=== PATIENT | female | born 1960 | race Caucasian/White ===

== ENCOUNTER → 2016-06-25 | Outpatient (CLI) | payer OTHER ==
[2016-06-25 10:39] LABS: BASOPHIL % 0.6 % (0-2); PLATELET COUNT 240 x10^3mcL (130-400); RED CELL DISTRIBUTION WIDTH 13.9 % (11.5-14.5)
[2016-06-25 10:55] LABS: ALKALINE PHOSPHATASE 56 U/L (46-116); ALT/SGPT 24 U/L (14-59); AST/SGOT 17 U/L (15-37); BILIRUBIN TOTAL 0.4 mg/dL (0.20-1.00); CALCIUM 8.6 mg/dL (8.5-10.1); CHLORIDE SERUM 107 mmol/L (98-107); CREATININE SERUM 0.7 mg/dL (0.6-1.0); GFR1 > 60 mL/min; GLUCOSE SERUM 113 mg/dL (74-106); SODIUM SERUM 147 mmol/L (136-145); TOTAL PROTEIN, SERUM 7.5 g/dL (6.4-8.2); URIC ACID 5.2 mg/dL (2.6-6.0)
[2016-06-25 11:01] LABS: C REACTIVE PROTEIN < 0.2 mg/dL (<=0.9)
[2016-06-25 11:12] LABS: UA SPECIFIC GRAVITY 1.025 (1.005-1.035); microscopic required? YES; urine erythrocyte NEGATIVE (NEGATIVE)
[2016-06-25 11:53] LABS: ERYTHROCYTE SED RATE 16 mm/hr (0-30)
== END | disposition home or self-care (01) ==
LOC: RD 09:25
DX: M79.7 Fibromyalgia (principal)
CPT/HCPCS: 85613

== ENCOUNTER → 2016-06-28 | Outpatient (CLI) | payer OTHER | END | disposition home or self-care (01) | LOC: RD 12:38 | DX: M79.7 Fibromyalgia (principal) ==

== ENCOUNTER → 2016-07-29 | Outpatient (CLI) | payer OTHER ==
[2016-07-29 11:51] LABS: PLATELET COUNT 234 x10^3mcL (130-400); RED CELL DISTRIBUTION WIDTH 13.5 % (11.5-14.5)
[2016-07-29 12:11] LABS: ALBUMIN 3.8 g/dL (3.4-5.0); ALKALINE PHOSPHATASE 55 U/L (46-116); ALT/SGPT 35 U/L (14-59); AST/SGOT 19 U/L (15-37); BILIRUBIN TOTAL 0.6 mg/dL (0.20-1.00); CALCIUM 8.2 mg/dL (8.5-10.1); CARBON DIOXIDE 32.1 mmol/L (21-32); CHLORIDE SERUM 103 mmol/L (98-107); CHOLESTEROL 152 mg/dL (<200); CREATININE SERUM 0.7 mg/dL (0.6-1.0); GFR1 > 60 mL/min; GLUCOSE SERUM 124 mg/dL (74-106); POTASSIUM SERUM 4.1 mmol/L (3.5-5.1); SODIUM SERUM 141 mmol/L (136-145); TOTAL PROTEIN, SERUM 7.3 g/dL (6.4-8.2); TRIGLYCERIDES 62 mg/dL (<150)
[2016-07-29 12:23] LABS: CHOLESTEROL/HDL RATIO 2.5; HDL CHOLESTEROL 62 mg/dL (40-60)
[2016-07-29 12:27] LABS: MONOCYTE 6 % (0-7); SEGMENTED NEUTROPHILS 65 % (37-75); rbc morphology (normal/abnorm) NORMAL (NORMAL)
== END | disposition home or self-care (01) ==
LOC: LB 10:53
DX: E11.9 Type 2 diabetes mellitus without complications (principal)

== ENCOUNTER → 2016-09-30 | Outpatient (CLI) | payer OTHER ==
[2016-09-30 10:46] LABS: BASOPHIL % 0.7 % (0-2); PLATELET COUNT 247 x10^3mcL (130-400); RED CELL DISTRIBUTION WIDTH 12.8 % (11.5-14.5)
[2016-09-30 11:25] LABS: ALBUMIN 3.8 g/dL (3.4-5.0); ALKALINE PHOSPHATASE 53 U/L (46-116); ALT/SGPT 42 U/L (14-59); AST/SGOT 23 U/L (15-37); BILIRUBIN TOTAL 0.52 mg/dL (0.20-1.00); CALCIUM 8.9 mg/dL (8.5-10.1); CARBON DIOXIDE 31.3 mmol/L (21-32); CHLORIDE SERUM 104 mmol/L (98-107); CREATININE SERUM 0.9 mg/dL (0.6-1.0); GFR1 > 60 mL/min; GLUCOSE SERUM 127 mg/dL (74-106); MAGNESIUM 2.1 mg/dL (1.8-2.4); POTASSIUM SERUM 4.1 mmol/L (3.5-5.1); SODIUM SERUM 142 mmol/L (136-145); TOTAL PROTEIN, SERUM 7.5 g/dL (6.4-8.2); URIC ACID 5.6 mg/dL (2.6-6.0)
[2016-09-30 11:26] LABS: C REACTIVE PROTEIN < 0.2 mg/dL (<=0.9)
[2016-09-30 18:54] LABS: ERYTHROCYTE SED RATE 7 mm/hr (0-30)
== END | disposition home or self-care (01) ==
LOC: LB 10:09
DX: M79.7 Fibromyalgia (principal)

== ENCOUNTER → 2016-11-01 | Outpatient (CLI) | payer OTHER ==
[2016-11-01 11:16] LABS: BASOPHIL % 0.5 % (0-2); PLATELET COUNT 221 x10^3mcL (130-400); RED CELL DISTRIBUTION WIDTH 13.3 % (11.5-14.5)
[2016-11-01 11:49] LABS: ALBUMIN 3.7 g/dL (3.4-5.0); ALKALINE PHOSPHATASE 46 U/L (46-116); ALT/SGPT 31 U/L (14-59); AST/SGOT 19 U/L (15-37); CALCIUM 8.7 mg/dL (8.5-10.1); CARBON DIOXIDE 33.4 mmol/L (21-32); CHLORIDE SERUM 104 mmol/L (98-107); CREATININE SERUM 0.7 mg/dL (0.6-1.0); GFR1 > 60 mL/min; GLUCOSE SERUM 130 mg/dL (74-106); POTASSIUM SERUM 4.3 mmol/L (3.5-5.1); SODIUM SERUM 143 mmol/L (136-145); TOTAL PROTEIN, SERUM 7.3 g/dL (6.4-8.2)
== END | disposition home or self-care (01) ==
LOC: LB 10:39
DX: E11.9 Type 2 diabetes mellitus without complications (principal)

== ENCOUNTER → 2017-04-21 | Outpatient (CLI) | payer OTHER | END | disposition home or self-care (01) | LOC: LB 12:39 | DX: N39.0 Urinary tract infection, site not specified (principal) ==

== ENCOUNTER → 2018-01-05 | Outpatient (CLI) | payer OTHER ==
[2018-01-05 10:43] LABS: BASOPHIL % 0.6 % (0-2); PLATELET COUNT 226 x10^3mcL (130-400); RED CELL DISTRIBUTION WIDTH 13.1 % (11.5-14.5)
[2018-01-05 11:16] LABS: ALBUMIN 3.8 g/dL (3.4-5.0); ALKALINE PHOSPHATASE 61 U/L (46-116); ALT/SGPT 34 U/L (14-59); AST/SGOT 17 U/L (15-37); BILIRUBIN TOTAL 0.67 mg/dL (0.20-1.00); CARBON DIOXIDE 30.8 mmol/L (21-32); CHLORIDE SERUM 105 mmol/L (98-107); CREATININE SERUM 0.8 mg/dL (0.6-1.0); GFR1 > 60 mL/min; GLUCOSE SERUM 142 mg/dL (74-106); POTASSIUM SERUM 3.9 mmol/L (3.5-5.1); SODIUM SERUM 143 mmol/L (136-145); TOTAL PROTEIN, SERUM 7.4 g/dL (6.4-8.2)
[2018-01-05 11:19] LABS: C REACTIVE PROTEIN < 0.2 mg/dL (<=0.9)
[2018-01-05 11:26] LABS: CALCIUM 8.4 mg/dL (8.5-10.1)
[2018-01-05 11:50] LABS: ERYTHROCYTE SED RATE 14 mm/hr (0-30)
[2018-01-06 06:14] LABS: VITAMIN D 25-HYDROXY 27.8 ng/mL (30.0-100.0)
== END | disposition home or self-care (01) ==
LOC: LB 10:06
DX: M79.7 Fibromyalgia (principal)

== ENCOUNTER → 2019-01-08 | Outpatient (CLI) | payer OTHER ==
[2019-01-08 11:54] LABS: microscopic required? YES; urine erythrocyte NEGATIVE (NEGATIVE)
[2019-01-09 08:06] LABS: IMMUNOGLOBULIN A 278 mg/dL (87-352); IMMUNOGLOBULIN G (QUANT) 1179 mg/dL (700-1600); IMMUNOGLOBULIN M 69 mg/dL (26-217)
== END | disposition home or self-care (01) ==
LOC: LB 11:10
DX: Z00.00 Encounter for general adult medical examination without abnormal findings (principal)

== ENCOUNTER 2019-01-19 10:02 | Emergency (ER) | payer OTHER ==
[~2019-01-19] VITALS: Ht 157.5 cm; Wt 66.7 kg
[2019-01-19 10:08] VITALS: BP 141/66; Ht 157.5 cm; Wt 66.7 kg
== END 2019-01-19 12:39 | disposition home or self-care (01) ==
LOC: ED 10:02
DX: H81.10 Benign paroxysmal vertigo, unspecified ear (principal)

== ENCOUNTER → 2019-01-22 | Outpatient (CLI) | payer OTHER ==
[2019-01-22 11:44] LABS: ALBUMIN 3.9 g/dL (3.4-5.0); ALKALINE PHOSPHATASE 64 U/L (46-116); ALT/SGPT 29 U/L (14-59); AST/SGOT 14 U/L (15-37); CALCIUM 8.9 mg/dL (8.5-10.1); CARBON DIOXIDE 30.6 mmol/L (21-32); CHLORIDE SERUM 103 mmol/L (98-107); CREATININE SERUM 0.8 mg/dL (0.6-1.0); GFR1 > 60 mL/min; GLUCOSE SERUM 146 mg/dL (74-106); HDL CHOLESTEROL 54 mg/dL (40-60); POTASSIUM SERUM 4.3 mmol/L (3.5-5.1); SODIUM SERUM 141 mmol/L (136-145); TOTAL PROTEIN, SERUM 7.8 g/dL (6.4-8.2); TRIGLYCERIDES 86 mg/dL (<150)
[2019-01-22 11:50] LABS: CHOLESTEROL 133 mg/dL (<200); CHOLESTEROL/HDL RATIO 2.5
[2019-01-23 09:08] LABS: microalbumin:creatinine ratio 10.5 (0.0-30.0)
== END | disposition home or self-care (01) ==
LOC: LB 10:31
DX: R73.9 Hyperglycemia, unspecified (principal)

== ENCOUNTER → 2019-07-10 | Outpatient (CLI) | payer OTHER ==
[2019-07-10 11:35] LABS: BASOPHIL % 0.7 % (0-2); PLATELET COUNT 257 x10^3mcL (130-400)
[2019-07-10 12:07] LABS: ALBUMIN 3.8 g/dL (3.4-5.0); ALKALINE PHOSPHATASE 49 U/L (46-116); ALT/SGPT 22 U/L (14-59); AST/SGOT 13 U/L (15-37); BILIRUBIN TOTAL 0.6 mg/dL (0.20-1.00); CALCIUM 8.8 mg/dL (8.5-10.1); CARBON DIOXIDE 31.4 mmol/L (21-32); CHLORIDE SERUM 105 mmol/L (98-107); CREATININE SERUM 0.7 mg/dL (0.6-1.0); GFR1 > 60 mL/min; GLUCOSE SERUM 128 mg/dL (74-106); POTASSIUM SERUM 4.4 mmol/L (3.5-5.1); SODIUM SERUM 142 mmol/L (136-145); TOTAL PROTEIN, SERUM 7.2 g/dL (6.4-8.2)
== END | disposition home or self-care (01) ==
LOC: LB 11:17
DX: E11.9 Type 2 diabetes mellitus without complications (principal)

== ENCOUNTER → 2019-10-09 | Outpatient (CLI) | payer OTHER ==
[2019-10-09 11:01] LABS: BASOPHIL % 0.5 % (0-2); PLATELET COUNT 253 x10^3mcL (130-400)
[2019-10-09 12:01] LABS: ALBUMIN 3.8 g/dL (3.4-5.0); ALKALINE PHOSPHATASE 47 U/L (46-116); ALT/SGPT 24 U/L (14-59); AST/SGOT 17 U/L (15-37); BILIRUBIN TOTAL 0.4 mg/dL (0.20-1.00); CHLORIDE SERUM 101 mmol/L (98-107); CREATININE SERUM 0.8 mg/dL (0.6-1.0); GFR1 > 60 mL/min; GLUCOSE SERUM 121 mg/dL (74-106); HDL CHOLESTEROL 46 mg/dL (40-60); POTASSIUM SERUM 4.2 mmol/L (3.5-5.1); SODIUM SERUM 139 mmol/L (136-145); TOTAL PROTEIN, SERUM 7.2 g/dL (6.4-8.2); TRIGLYCERIDES 41 mg/dL (<150)
[2019-10-09 12:03] LABS: CHOLESTEROL 94 mg/dL (<200)
== END | disposition home or self-care (01) ==
LOC: LB 10:39
DX: E11.9 Type 2 diabetes mellitus without complications (principal)

== ENCOUNTER → 2019-11-06 | Outpatient (CLI) | payer OTHER, SELFPAY ==
[~2019-11-06] VITALS: Ht 157.5 cm; Wt 63.5 kg
--- NOTE | 2019-11-09 17:15 | NUR ---
AT [address]30 RECE[address]ED A CALL FROM DR Sandeep GA'S OFFICE AND SPOKE TO HEENA, SHE STATED DR Sandeep GA WANTS TO CANCEL THE SCHEDULED COLONOSCOPY ON 11/13/19 D/T MD HAVE A MEETING. PATIENT WAS ALREADY INFORMED ,NOTIFIED BY MD'S OFFICE HAD GAVE ANOTHER DATE, PATIENT STILL DECIDING.SHARITA FROM [place] INFORMED OF THE CANCELLATION AT 1719.
== END | disposition home or self-care (01) ==
LOC: LB 14:45 → OR 11-13 07:30 → EDSTATUS 11-13 11:00 → OR 11-13 11:00 → GI 11-13 11:00
PROVIDERS: ATTEND Internal Medicine Gastroenterology
DX: E78.5 Hyperlipidemia, unspecified (principal)
CPT/HCPCS: U0003-CS

== ENCOUNTER 2019-11-13 11:04 | Day surgery (SDC) | payer OTHER, SELFPAY ==
--- NOTE | 2019-11-12 15:30 | NUR ---
[place] WITH LOL[place] [facility] [place] SHE REPORTS "PATIENT IS TO HAVE COLONOSCOPY T[place]ARR[place] PREVIOUSLY PLANNED. I HAVE SPOKEN WITH PT RE:BOWEL PREP, NPO STATUS AND ARRIVAL TIME." UPDATED NEDA WITH SCHEDULE FOR TOMORROW AND MESSAGE LEFT FOR BALBIR IN INSURANCE. PT ALSO CALLED, MESSAGE LEFT TO REVIEW PLAN FOR CASE TO BE DONE ON Tuesday11-13-19.
[~2019-11-13] VITALS: Ht 157.5 cm; Wt 63.5 kg
[2019-11-13 11:52] VITALS: BP 133/80
[2019-11-13 16:21] VITALS: BP 118/71
== END 2019-11-13 16:05 | disposition home or self-care (01) ==
LOC: OR 11:04
PROVIDERS: ATTEND Internal Medicine Gastroenterology
DX: Z12.11 Encounter for screening for malignant neoplasm of colon (principal); D12.3 Benign neoplasm of transverse colon
CPT/HCPCS: 45378; J1200; J1610; J2250; J2310; J3010; J3490

== ENCOUNTER → 2020-01-14 | Outpatient (CLI) | payer OTHER ==
[2020-01-14 11:53] LABS: ALKALINE PHOSPHATASE 54 U/L (46-116); ALT/SGPT 23 U/L (14-59); AST/SGOT 14 U/L (15-37); BILIRUBIN TOTAL 0.4 mg/dL (0.20-1.00); CALCIUM 8.8 mg/dL (8.5-10.1); CARBON DIOXIDE 29.6 mmol/L (21-32); CHLORIDE SERUM 103 mmol/L (98-107); CREATININE SERUM 0.8 mg/dL (0.6-1.0); GFR1 > 60 mL/min; GLUCOSE SERUM 129 mg/dL (74-106); POTASSIUM SERUM 4.6 mmol/L (3.5-5.1); SODIUM SERUM 139 mmol/L (136-145); TOTAL PROTEIN, SERUM 7.4 g/dL (6.4-8.2)
== END | disposition home or self-care (01) ==
LOC: LB 10:41
DX: E11.9 Type 2 diabetes mellitus without complications (principal)